=== PATIENT | male | born 1990 | race American Indian/Alaskan Native ===

== ENCOUNTER 2017-11-17 20:47 | Emergency (ER) | payer SELFPAY ==
[2017-11-17 21:06] VITALS: TEMP 98.6
--- NOTE | 2017-11-17 21:34 | ED PDOC ---
Arrival/HPI <Brady Davis - Last Filed: 11/18/17 01:18> <Chapo Milton - Last Filed: 11/18/17 04:53> - General Chief Complaint: Chest Pain Time Seen by Provider: 11/17/17 20:51 - History of Present Illness Narrative History of Present Illness (Text): 27 year old male with no relevant PMH presents with sharp needle like chest pain that occurred at 8 pm for 7 minutes today and left arm and leg numbness and tingling. Patient has also had nausea for a few moments which receded after he took a few deep breaths. Patient reports dizziness that started at 8 pm. He has had on and off dizziness since last night around 12 am. Patient also reports epigastric pain, but no back pain. Epigastric pain started after he had some gravy today around 7 pm. Patient denies any dysuria, weakness, change in vision or hearing, headache, fever, constipation, or diarrhea. Patient reports going to [facility] [place] last night at 12 am for left sided arm and leg numbness and tingling. He reports they told him he had an abnormal heart beat. Patient left AMA without undergoing any tests other than an EKG. (Chapo Milton) Past Medical History - Provider Review Nursing Documentation Reviewed: Yes - Psychiatric Hx Psychophysiologic Disorder: No Hx Substance Use: No <Chapo Milton - Last Filed: 11/18/17 04:53> Family/Social History - Physician Review Nursing Documentation Reviewed: Yes Family/Social History: Hypertension Smoking Status: Never Smoked Hx Alcohol Use: Yes Frequency of alcohol use: Socially Hx Substance Use: No <Chapo Milton - Last Filed: 11/18/17 04:53> Allergies/Home Meds <Brady Davis - Last Filed: 11/18/17 01:18> <Chapo Milton - Last Filed: 11/18/17 04:53> Allergies/Adverse Reactions: Allergies apple Allergy (Verified 11/17/17 20:52) SWELLING tree nut Allergy (Verified 11/17/17 20:52) SWELLING Home Medications: Home Meds Medication Instructions Recorded Confirmed No Known Home Med 11/17/17 11/17/17 Review of Systems - Physician Review All systems were reviewed & negative as marked: Yes - Review of Systems Constitutional: Normal Eyes: Normal ENT: Normal Respiratory: SOB Cardiovascular: Chest Pain Gastrointestinal: Abdominal Pain (after eating gravy), Nausea. absent: Constipation, Diarrhea Musculoskeletal: Normal Skin: Normal Neurological: Dizziness <Chapo Milton - Last Filed: 11/18/17 04:53> Physical Exam <RyanBrady - Last Filed: 11/18/17 01:18> Vital Signs Reviewed: Yes Temperature: Afebrile Blood Pressure: Normal Pulse: Regular Respiratory Rate: Normal Appearance: Positive for: Well-Appearing Pain Distress: None Mental Status: Positive for: Alert and Oriented X 3 - Systems Exam Head: Present: Atraumatic, Normocephalic Pupils: Present: PERRL Extroacular Muscles: Present: EOMI Conjunctiva: Present: Normal Mouth: Present: Moist Mucous Membranes Pharnyx: Present: Normal Nose (External): Present: Atraumatic Neck: Present: Normal Range of Motion Respiratory/Chest: Present: Clear to Auscultation Cardiovascular: Present: Regular Rate and Rhythm Abdomen: No: Tenderness, Distention Upper Extremity: Present: Normal Inspection, Normal ROM, NORMAL PULSES Lower Extremity: Present: Normal Inspection, NORMAL PULSES, Normal ROM Neurological: Present: GCS=15, CN II-XII Intact, Speech Normal, Motor Func Grossly Intact, Normal Sensory Function Skin: Present: Warm, Dry, Normal Color Psychiatric: Present: Alert, Oriented x 3, Normal Insight, Normal Concentration <Chapo Milton - Last Filed: 11/18/17 04:53> Vital Signs Temp Pulse Resp BP Pulse Ox 11/18/17 00:00 69 19 108/62 97 11/17/17 22:48 65 18 109/65 97 11/17/17 20:52 98.6 F 89 16 111/69 96 Medical Decision Making <Brady Davis - Last Filed: 11/18/17 01:18> <Chapo Milton - Last Filed: 11/18/17 04:53> ED Course and Treatment: 11/17/17 21:55 Eladio Hill is a 27 year old male who presents to the emergency department with a complaint of sharp chest pain, dizziness, and epigastric abdominal pain this evening. In agreement with resident note, which includes further HPI details. Patient was seen and evaluated with resident, came up with plan and treatment together. (Brady Davis) Impression: 27 year old with no relevant past medical history presents with a 2 hour history of chest pain, numbness and tingling of his entire left side, history of epigastric pain but no back pain Assessment: Rule out unlikely NV vs. pneumonia vs. PE. Rule out pancreatitis, peptic ulcer disease for epigastric pain. Rule out unlikely stroke vs. drug abuse for numbness/tingling and dizziness. Plan: Cardiac ISO, EKG, CMP, chest x ray ordered for chest pain evaluation. Lipase ordered to rule out pancreatitis. Head CT to evaluate for numbness and tingling of left side and dizziness. Urine drug screen ordered to evaluate for numbness and tingling, chest pain, and dizziness. 11/17/17 21:51 EKG: normal sinus rhythm. Ventricular rate: 75 SC: 164 QRS: 86 QT/QTc: 348/388 EKG looks similar to EKG last night at [facility] [place]. 11/17/17 22:48 CBC was unremarkable except for WBC of 4.3. CMP was unremarkable. Troponin less than 0.01, so doubt cardiac pathology. 11/18/17 00:12 Chest X ray did not show any acute process. Head CT did not show any acute process. We are still awaiting urine drug screen. Patient can be discharged and follow up with primary care physician. (Chapo Milton) - Lab Interpretations Lab Results: 11/17/17 22:19 11/17/17 22:19 Lab Results 11/18/17 00:01: Urine Opiates Screen Negative, Urine Methadone Screen Negative, Ur Barbiturates Screen Negative, Ur Phencyclidine Scrn Negative, Ur Amphetamines Screen Negative, U Benzodiazepines Scrn Negative, U Oth Cocaine Metabols Negative, U Cannabinoids Screen Negative 11/18/17 00:01: Urine Color Light yellow, Urine Appearance Clear, Urine pH 7.0, Ur Specific Matthews 1.020, Urine Protein Negative, Urine Glucose (UA) Negative, Urine Ketones Negative, Urine Blood Negative, Urine Nitrate Negative, Urine Bilirubin Negative, Urine Urobilinogen 0.2, Ur Leukocyte Esterase Negative 11/17/17 22:19: WBC 4.3 L, RBC 4.38, Hgb 13.6 L, Hct 37.7 L, MCV 86.1, MCH 31.1 , MCHC 36.1, RDW 12.6, Plt Count 207, MPV 9.1, Gran % 47.9 L, Lymph % (Auto) 39.2 H, [place] % (Auto) 8.0 H, Eos % (Auto) 4.2, Baso % (Auto) 0.7, Gran # 2.04, Lymph # (Auto) 1.7, [place] # (Auto) 0.3, Eos # (Auto) 0.2, Baso # (Auto) 0.03 11/17/17 22:19: Sodium 139, Potassium 3.6, Chloride 101, Carbon Dioxide 26, Anion Gap 15, BUN 22 H, Creatinine 0.9, Est GFR ( Amer) > 60, Est GFR ( Non-Af Amer) > 60, Random Glucose 103, Calcium 9.0, Total Bilirubin 0.5, AST 25 , ALT 28, Alkaline Phosphatase 43, Lactate Dehydrogenase 466, Total Creatine Kinase 160, Troponin I < 0.01, Total Protein 7.5, Albumin 4.3, Globulin 3.2, Albumin/Globulin Ratio 1.4, Lipase 75 - RAD Interpretation Radiology Orders: 11/17/17 21:35 HEAD W/O CONTRAST [CT] Stat CHEST PORTABLE [RAD] Stat - Scribe Statement The provider has reviewed the documentation as recorded by the Scribe <Brady Davis - Last Filed: 11/18/17 01:18> - PA / [employer]NAGER / Resident Statement MD/ has reviewed & agrees with the documentation as recorded. MD/DO has examined the patient and agrees with the treatment plan. <Chapo Milton - Last Filed: 11/18/17 04:53> - Scribe Statement Janelle Mota Provider Scribe Attestation: All medical record entries made by the Scribe were at my direction and personally dictated by me. I have reviewed the chart and agree that the record accurately reflects my personal performance of the history, physical exam, medical decision making, and the department course for this patient. I have also personally directed, reviewed, and agree with the discharge instructions and disposition. (Brady Davis) Disposition/Present on Arrival <Brady Davis - Last Filed: 11/18/17 01:18> - Present on Arrival Any Indicators Present on Arrival: No History of DVT/PE: No History of Uncontrolled Diabetes: No Urinary Catheter: No History of Decub. Ulcer: No History Surgical Site Infection Following: None - Disposition Have Diagnosis and Disposition been Completed?: Yes Disposition Time: 00:28 Patient Plan: Discharge <YoanChapo - Last Filed: 11/18/17 04:53> - Disposition Diagnosis: Numbness and tingling in left arm, Numbness and tingling of left leg, Chest pain Disposition: HOME/ ROUTINE Condition: STABLE Discharge Instructions (ExitCare): Chest Pain (ED) Additional Instructions: ELADIO HILL, thank you for letting us take care of you today. Your provider was Brady Davis MD and Chapo Milton DO and you were treated for DIZZYNESS, CHEST PAIN, AND LEFT SIDE NUMB ARM AND FOOT. The emergency medical care you received today was directed at your acute symptoms. Chest X ray, head CT, and EKG were all unremarkable. Do not eat food high in fat. Return to the Emergency Department if your symptoms worsen, do not improve, or if you have any other problems. Please contact the [facility] clinic to follow up for your symptoms. Bring any paperwork you were given at discharge with you along with any medications you are taking to your follow up visit. Our treatment cannot replace ongoing medical care by a primary care provider outside of the emergency department. Thank you for allowing the [facility] team to be part of your care today. Referrals: [facility] [Outside] - Follow up with primary Forms: [facility] (Thai)
[2017-11-17 22:26] LABS: BASO # 0.03 K/mm3 (0.0-2.0); BASO % 0.7 % (0.0-3.0); EOS # 0.2 (0.0-0.7); EOS % 4.2 % (1.5-5.0); GRAN # 2.04 (1.4-6.5); GRAN % 47.9 % (50.0-68.0); HEMOGLOBIN 13.6 g/dL (14.0-18.0); LYMPH # 1.7 (1.2-3.4); LYMPH % 39.2 % (22.0-35.0); MEAN CELL VOLUME 86.1 fl (80.0-105.0); MEAN CORPUSCULAR HEMOGLOBIN 31.1 pg (25.0-35.0); MEAN CORPUSCULAR HGB CONC 36.1 g/dl (31.0-37.0); MEAN PLATELET VOLUME 9.1 fl (7.0-11.0); MONO # 0.3 (0.1-0.6); RBC 4.38 10^6/uL (3.5-6.1); RED CELL DISTRIBUTION WIDTH 12.6 % (11.5-14.5); WHITE BLOOD COUNT 4.3 10^3/ul (4.5-11.0)
[2017-11-17 22:37] LABS: ALB/GLOB RATIO 1.4 (1.1-1.8); ALBUMIN 4.3 g/dL (3.0-4.8); ALT/SGPT 28 U/L (7-56); AST/SGOT 25 U/L (17-59); BLOOD UREA NITROGEN 22 mg/dL (7-21); GFR AFRICAN-AMERICAN > 60; GFR NON-AFRICAN AMERICAN > 60; LIPASE 75 U/L (23-300)
[2017-11-17 22:47] LABS: TROPONIN I < 0.01 ng/mL
[2017-11-18 00:25] VITALS: O2SAT 97
[2017-11-18 00:37] VITALS: BP 108/62; PULSE 69; RESP 19
[2017-11-18 01:07] LABS: URINE BILIRUBIN NEGATIVE (NEGATIVE); URINE BLOOD NEGATIVE (NEGATIVE); URINE GLUCOSE (UA) NEGATIVE (NEGATIVE); URINE LEUKOCYTE ESTERASE NEGATIVE Leu/uL (NEGATIVE); URINE PROTEIN NEGATIVE mg/dL (<30 mg/dL); URINE UROBILINOGEN 0.2 E.U./dL (<1 E.U./dL)
[2017-11-18 01:19] LABS: URINE APPEARANCE CLEAR (CLEAR); URINE COLOR LIGHT YELLOW (YELLOW)
[2017-11-18 01:32] LABS: BARBITURATES, UR NEGATIVE (NEGATIVE); BENZODIAZEPINES, UR NEGATIVE (NEGATIVE); OPIATES, UR NEGATIVE (NEGATIVE); PHENCYCLIDINE, UR NEGATIVE (NEGATIVE)
--- NOTE | 2017-11-18 08:52 | CT ---
Date of service: 11/17/2017 PROCEDURE: CT HEAD WITHOUT CONTRAST. HISTORY: Dizziness COMPARISON: None available. TECHNIQUE: Axial computed tomography images were obtained through the head/brain without intravenous contrast. Radiation dose: Total exam DLP = 996.65 mGy-cm. This CT exam was performed using one or more of the following dose reduction techniques: Automated exposure control, adjustment of the mA and/or kV according to patient size, and/or use of iterative reconstruction technique. FINDINGS: HEMORRHAGE: No intracranial hemorrhage. BRAIN: Mcgarry-white matter differentiation is preserved. There is no mass, mass effect or abnormal extra-axial fluid collection. There is no territorial infarction. The midline sagittal structures are normal. VENTRICLES: The ventricles are normal in size, shape and configuration. CALVARIUM: There is no calvarial fracture or extracranial soft tissue swelling. PARANASAL SINUSES: Predominantly clear. MASTOID AIR CELLS: Predominantly clear. OTHER FINDINGS: None. IMPRESSION: No acute intracranial abnormality. A preliminary report was provided by [facility].
--- NOTE | 2017-11-18 09:00 | RAD ---
Date of service: 11/17/2017 HISTORY: r/o infiltrate COMPARISON: No prior. FINDINGS: LUNGS: The lungs are well inflated and clear. PLEURA: No significant pleural effusion identified, no pneumothorax apparent. CARDIOVASCULAR: Normal. OSSEOUS STRUCTURES: No significant abnormalities. VISUALIZED UPPER ABDOMEN: Normal. OTHER FINDINGS: None. IMPRESSION: No active pulmonary disease.
--- NOTE | 2017-11-18 12:16 | CARD ---
APPROVED REPORT Date of service: 11/17/2017 EKG Measurement Heart [id number] <Conclusion> Normal sinus rhythm Early repolarization Normal ECG
== END 2017-11-18 00:35 | disposition home or self-care (01) ==
LOC: ED 20:47 → MERGE 20:47 → ED 11-18 00:35
DX: R07.9 Chest pain, unspecified (principal); R20.2 Paresthesia of skin; Z82.49 Family history of ischemic heart disease and other diseases of the circulatory system
CPT/HCPCS: 70450; 71045; 80053; 81003; 82550; 83615; 83690; 84484; 85025; 87086; 93005; 99284; G0480

== ENCOUNTER 2018-09-08 07:18 | Emergency (ER) | payer OTHER ==
[2018-09-08 07:25] VITALS: BMI 19.9
[2018-09-08 07:32] VITALS: PULSE 85; TEMP 98.2
--- NOTE | 2018-09-08 08:17 | ED PDOC ---
Arrival/HPI - General Chief Complaint: ENT Problem Time Seen by Provider: 09/08/18 07:27 Historian: Patient - History of Present Illness Narrative History of Present Illness (Text): 09/08/18 08:10 28 y.o male with no significant past medical history, who presents to the emergency department complaining of sore throat that started four days ago. Patient states having chills, dizziness, nausea. Patient reports pain and irritation to the back of his throat. Patient denies any fever, chest pain, shortness of breath, vomiting, diarrhea, headache, or any other complaints. Time/Duration: > week (4 days.) Symptom Onset: Gradual Activities at Onset: Light Context: Home Past Medical History - Provider Review Nursing Documentation Reviewed: Yes - Infectious Disease Hx of Infectious Diseases: None - Psychiatric Hx Psychophysiologic Disorder: No Hx Substance Use: No - Anesthesia Hx Anesthesia: No Family/Social History - Physician Review Nursing Documentation Reviewed: Yes Family/Social History: Unknown Family HX Smoking Status: Never Smoked Hx Alcohol Use: Yes Hx Substance Use: No Allergies/Home Meds Allergies/Adverse Reactions: Allergies apple Allergy (Verified 11/17/17 20:52) SWELLING tree nut Allergy (Verified 11/17/17 20:52) SWELLING seasonal Allergy (Uncoded 02/01/17 23:38) Review of Systems - Physician Review All systems were reviewed & negative as marked: Yes - Review of Systems ENT: Sore Throat Physical Exam - Physical Exam Narrative Physical Exam (Text): 09/08/18 08:18 Gen: VS reviewed, alert, well developed, well nourished, nontoxic, mild distress. ENT: normal pharynx. Eye: EOMI, PERRL. Neck: no JVD, supple, no adenopathy. CV: regular rate, regular rhythm, no rubs, no murmur, no gallops, S1, S2, pulses equal and strong. Pulm: no distress, clear to auscultation, no wheeze, no rhonchi, breath sounds equal, no rales. Abd: soft, nontender, no guarding, no rebound, no rigidity, normal bowel sounds. Ext: no edema. Skin: good color, no rash, no cyanosis. Psych: responds appropriately to questions, normal affect. Neuro: oriented x 3, CN2-12 intact grossly, motor intact, sensation intact. Vital Signs Reviewed: Yes Vital Signs Temp Pulse Resp BP Pulse Ox 09/08/18 07:25 98.2 F 85 16 130/86 99 Temperature: Afebrile Blood Pressure: Normal Pulse: Regular Respiratory Rate: Normal Appearance: Positive for: Well-Appearing, Non-Toxic, Comfortable Pain Distress: Mild Mental Status: Positive for: Alert and Oriented X 3 - Systems Exam Pharnyx: Present: ERYTHEMA (Posterior pharynx redness. ), Other (Mild tonsils swelling. Scant white exudes. ). No: Uvular Deviation Medical Decision Making ED Course and Treatment: 09/08/18 09:11 acute pharyngitis, likely viral, patient willing to forego empiric tx and will follow up with throat culture results. supportive care. patient reports interm ittent epigastric pains but on physical exam there is no obvious splenomegaly and there is no tenderness in the epigastrum, patient is not near syncopa with normal vital and splenic rupture is unlikely at this time- "mono" was discussed and patient is aware of possibility. - Lab Interpretations Narrative Lab Interpretation (Text): 09/08/18 09:06 Lab Results 09/08/18 07:45: Grp A Beta Strep Ag Negative I have reviewed the lab results: Yes - Medication Orders Current Medication Orders: Discontinued Medications Lidocaine HCl (Lidocaine 2% Viscous) 15 ml PO STAT STA Stop: 09/08/18 07:42 - Scribe Statement The provider has reviewed the documentation as recorded by the Scribe Tori Armendariz All medical record entries made by the Scribe were at my direction and personally dictated by me. I have reviewed the chart and agree that the record accurately reflects my personal performance of the history, physical exam, medical decision making, and the department course for this patient. I have also personally directed, reviewed, and agree with the discharge instructions and disposition. Disposition/Present on Arrival - Present on Arrival Any Indicators Present on Arrival: No History of DVT/PE: No History of Uncontrolled Diabetes: No Urinary Catheter: No History of Decub. Ulcer: No History Surgical Site Infection Following: None - Disposition Have Diagnosis and Disposition been Completed?: Yes Diagnosis: Acute pharyngitis Disposition: HOME/ ROUTINE Disposition Time: 09:14 Patient Plan: Discharge Condition: STABLE Discharge Instructions (ExitCare): Sore Throat in Adults Additional Instructions: stay well hydrated (water). return for any new or worsening symptoms. Prescriptions: Ibuprofen [Motrin Tab] 600 mg PO QID #30 tab Lidocaine 2% Viscous 15 ml MM Q3H #1 bottle Forms: [employer] (Italian), WORK NOTE
[2018-09-08 09:02] VITALS: BP 129/70; RESP 18; O2SAT 100
== END 2018-09-08 09:27 | disposition home or self-care (01) ==
LOC: ED 07:18
DX: J02.9 Acute pharyngitis, unspecified (principal)